=== PATIENT | male | born 1980 | race Caucasian/White ===

== ENCOUNTER 2022-10-04 19:01 | Emergency (ER) | payer OTHER ==
[2022-10-04] MEDS ORDERED: methylPREDNISolone Sodium Succinate 40 MG/1 ML SDV IVPUSH ONE (19:27)
[2022-10-04] MEDS ORDERED: diphenhydrAMINE 50 MG/ML SDV IVPUSH ONE (19:27)
[2022-10-04] MEDS ORDERED: EPINEPHrine 1 MG/1 ML Amp IM ONE (19:30)
[2022-10-04] MEDS ORDERED: Sodium Chloride 0.9% 1,000 ML IV ONE (19:42)
[2022-10-04] MEDS ORDERED: Sodium Chloride 0.9% 1,000 ML IV SCH (19:45)
[2022-10-04 20:15] LABS: CARBON DIOXIDE,CO2 22.7 mmol/L (21.0-32.0); POTASSIUM,K 3.6 mmol/L (3.5-5.1)
[2022-10-05 00:11] VITALS: BP 113/67; PULSE 72
== END 2022-10-04 23:23 | disposition home or self-care (01) ==
LOC: MW.ED 19:01
DX: R21 Rash and other nonspecific skin eruption (principal); T45.0X5A Adverse effect of antiallergic and antiemetic drugs, initial encounter; Z88.6 Allergy status to analgesic agent; Z79.899 Other long term (current) drug therapy
CPT/HCPCS: 36415; 80053; 82947; 83690; 84484; 85025; 93005; 96361; 96372; 96374; 96375; 99284; J0171; J1200; J2920; J7030; 93010